=== PATIENT | female | born 1970 | race Caucasian/White ===

== ENCOUNTER 2021-12-24 07:24 | Day surgery (SDC) | payer OTHER, SELFPAY ==
[2021-12-22 10:16] VITALS: BMI 36.1
--- NOTE | 2021-12-23 14:08 | HO.ANESPROP2 ---
Documented by User: Alia Farrell NP 12/23/21 14:08 HPI - Anesthesia Eval Consult details Narrative: 51yo F for Colonoscopy PMFSH Surgical History Surgical History H/O tubal ligation History of ankle surgery History of hernia repair Previous section Social History Social History Patient Tobacco Use Status: Never used Tobacco Are you DNR?: No Advance Directives: No Advance Directives Information Provided: Yes Nutrition Risks: No Nutritional Risk Patient : No Meds Allergies Allergy/AdvReac Type Severity Reaction Status Date / Time amoxicillin Allergy Unknown Verified 09/07/18 00:00 Home Medications Medication Instructions Recorded Confirmed Last Taken Type beclomethasone dipropionate 80 1 puff inhalation BID 12/23/21 12/23/21 12/24/21 History mcg/actuation HFA breath activated aerosol (Qvar RediHaler) fluoxetine 20 mg capsule 1 cap PO DAILY 12/23/21 12/23/21 12/23/21 History albuterol sulfate 2.5 mg/3 mL 1 vial inhalation Q4H PRN wheezing 12/24/21 12/24/21 12/24/21 History (0.083 %) solution for nebulization Exam Exam Date and Time: December 23, 2021 1408 Height,Weight and Vital Signs: Height 5 ft 3 in Weight 92.533 kg Assessment and Plan Assessment Anesthesia Assessment: Chart Reviewed Documented by User: Irma Victoria MD 12/24/21 07:57 PMFSH Active Problems Active Problems: obesity Past Medical History Functional capacity: independent ambulation Patient : No Family History Family history of problems with anesthesia: No Surgical History Surgical History H/O tubal ligation History of ankle surgery History of hernia repair Previous section History of Problems with Anesthesia: No Social History Social History Patient Tobacco Use Status: Never used Tobacco Are you DNR?: No Advance Directives: No Advance Directives Information Provided: Yes Nutrition Risks: No Nutritional Risk Patient : No Travel History History of recent travel: No Recent Travel in [place] Within the Last 8 Weeks: No Meds Allergies Allergy/AdvReac Type Severity Reaction Status Date / Time amoxicillin Allergy Unknown Verified 09/07/18 00:00 Home Medications Medication Instructions Recorded Confirmed Last Taken Type beclomethasone dipropionate 80 1 puff inhalation BID 12/23/21 12/23/21 12/24/21 History mcg/actuation HFA breath activated aerosol (Qvar RediHaler) fluoxetine 20 mg capsule 1 cap PO DAILY 12/23/21 12/23/21 12/23/21 History albuterol sulfate 2.5 mg/3 mL 1 vial inhalation Q4H PRN wheezing 12/24/21 12/24/21 12/24/21 History (0.083 %) solution for nebulization Exam Airway Mallampati Class: II TM Dist: >3cm Neck ROM: Full Heart: RRR Lungs: CTA Assessment and Plan Final Anesthetic Review Family History of Problems with Anesthesia: No History of Problems with Anesthesia: No NPO: Yes ASA Class: II Final Preanesthetic Review: No Changes in Pt Med Stat, Meds/Allgs Chart Reviewed, Consent Obtained/Reviewed and Anes Risks/Benef Reviewed Patient Risk: Low Procedure Risk: Low Anesthetic Plan Anesthetic Plan: MAC: Disposition: Standard PACU
[2021-12-24 07:41] VITALS: BP 163/98; PULSE 92; RESP 16; TEMP 36.1; O2SAT 98
[2021-12-24 07:50] LABS: COVID-19 Test Negative (Negative)
[2021-12-24] MEDS: Lactated Ringers 1,000 ML 100 ML IVCONT (07:54)
--- NOTE | 2021-12-24 09:51 | PM.OP ---
Brief Operative Note Date of Service: 12/24/21 Pre-op diagnosis: Screening Post-op diagnosis: other (Colon polyps) Procedure: Colonoscopy to the cecum with hot snare polypectomy x 2, with clipping x3 and ink marking for the polyp at 60cm Surgeon: True Santos Anesthesia: MAC Was an Cloud Infrastructure Architect used for this Procedure?: No Estimated blood loss (mL): 3.0 Pathology: other (A. Polyp at 60cm) Condition: stable Disposition: PACU
[2021-12-24 09:55] VITALS: BP 154/85; PULSE 92; RESP 16; TEMP 36.7; O2SAT 98
[2021-12-24 10:10] VITALS: BP 159/83; PULSE 81; RESP 18; TEMP 36.7; O2SAT 96
--- NOTE | 2021-12-24 10:26 | HO.POSTANES ---
Post Anesthesia Evaluation Post Anesthesia Evaluation Vital Signs: Vital Signs Temp Pulse Resp BP Pulse Ox O2 Del Method 12/24/21 10:10 98.0 F 81 18 159/83 H 96 Room Air 12/24/21 09:55 98.0 F 92 16 154/85 H 98 Room Air 12/24/21 07:41 97 F 92 16 163/98 H 98 Room Air Anesthesia: Monitored Mental Status: Awake Pain Control: Satisfactory Nausea/Vomiting: None Hydration: Adequate Anesthesia-Related Issues: No Anes. Related Issues
== END 2021-12-24 10:31 | disposition home or self-care (01) ==
PROVIDERS: Nurse Practitioner; Visit Provider Internal Medicine
PROC: 0DJD8ZZ Inspection of Lower Intestinal Tract, Via Natural or Artificial Opening Endoscopic (ICD-10-PCS; CPT 45378; principal; 2021-12-24 08:30)
DX: Z12.11 Encounter for screening for malignant neoplasm of colon (principal); Z80.0 Family history of malignant neoplasm of digestive organs; D12.4 Benign neoplasm of descending colon; K57.30 Diverticulosis of large intestine without perforation or abscess without bleeding; K64.8 Other hemorrhoids; Z79.51 Long term (current) use of inhaled steroids; J45.909 Unspecified asthma, uncomplicated; Z88.1 Allergy status to other antibiotic agents; Z20.822 Contact with and (suspected) exposure to COVID-19
CPT/HCPCS: 45385; 45381; 87635; 88305

== ENCOUNTER 2022-08-05 10:46 | Day surgery (SDC) | payer OTHER, SELFPAY ==
--- NOTE | 2022-08-04 14:33 | P.CONAN_ITS ---
Documented by User: Alia Farrell NP 08/04/22 14:34 HPI - Anesthesia Eval Consult details Narrative: 52yo F for Colonoscopy s/p colo 12/2021 with [facility] Past Medical History Medical History (Updated 08/04/22 @ 13:15 by Andie Pena, RICHARD) Asthma HTN (hypertension) Family History Family history of problems with anesthesia: No Surgical History Surgical History (Updated 08/04/22 @ 13:15 by Andie Pena, RN) H/O colonoscopy H/O tubal ligation History of ankle surgery History of hernia repair Previous section History of Problems with Anesthesia: No Social History Social History Patient Tobacco Use Status: Never used Tobacco Use of substances other than those prescribed or required for medical reasons: No Are you DNR?: No Advance Directives: No Advance Directives Information Provided: Yes Meds Allergies Allergy/AdvReac Type Severity Reaction Status Date / Time amoxicillin Allergy Unknown Verified 09/07/18 00:00 Home Medications Medication Instructions Recorded Confirmed Last Taken Type albuterol sulfate 2.5 mg/3 mL 1 inhalation Q4H PRN wheezing 08/04/22 08/04/22 Unknown History (0.083 %) solution for nebulization beclomethasone dipropionate 80 1 inh inhalation BID 08/04/22 08/04/22 08/05/22 History mcg/actuation HFA breath activated aerosol (Qvar RediHaler) fluoxetine 40 mg capsule 40 mg PO DAILY 08/04/22 08/04/22 Unknown History losartan 100 mg tablet 100 mg PO DAILY 08/04/22 08/04/22 08/05/22 History Exam Exam Date and Time: August 04, 2022 1433 Assessment and Plan Assessment Anesthesia Assessment: Chart Reviewed Final Anesthetic Review Family History of Problems with Anesthesia: No History of Problems with Anesthesia: No Documented by User: Maria Eugenia Bautista MD 08/05/22 13:28 PMF Past Medical History Medical History (Updated 08/04/22 @ 13:15 by Andie Pena RN) Asthma HTN (hypertension) Surgical History Surgical History (Updated 08/04/22 @ 13:15 by Andie Pena RN) H/O colonoscopy H/O tubal ligation History of ankle surgery History of hernia repair Previous section Social History Social History Patient Tobacco Use Status: Never used Tobacco Use of substances other than those prescribed or required for medical reasons: No Are you DNR?: No Advance Directives: No Advance Directives Information Provided: Yes Meds Allergies Allergy/AdvReac Type Severity Reaction Status Date / Time amoxicillin Allergy Unknown Verified 09/07/18 00:00 Home Medications Medication Instructions Recorded Confirmed Last Taken Type albuterol sulfate 2.5 mg/3 mL 1 inhalation Q4H PRN wheezing 08/04/22 08/04/22 Unknown History (0.083 %) solution for nebulization beclomethasone dipropionate 80 1 inh inhalation BID 08/04/22 08/04/22 08/05/22 History mcg/actuation HFA breath activated aerosol (Qvar RediHaler) fluoxetine 40 mg capsule 40 mg PO DAILY 08/04/22 08/04/22 Unknown History losartan 100 mg tablet 100 mg PO DAILY 08/04/22 08/04/22 08/05/22 History Exam Airway Mallampati Class: II (large neck small chin) TM Dist: >3cm Neck ROM: Full Loose/Missing/Broken Teeth: No Heart: rr Lungs: cta Assessment and Plan Assessment Anesthesia Assessment: Anesthesia Plan Discussed Final Anesthetic Review NPO: Yes ASA Class: II Final Preanesthetic Review: No Changes in Pt Med Stat, Meds/Allgs Chart Reviewed, Consent Obtained/Reviewed and Anes Risks/Benef Reviewed Patient Risk: Intermediate Procedure Risk: Low Anesthetic Plan Anesthetic Plan: MAC: Disposition: Standard PACU
[2022-08-05 11:05] VITALS: BMI 35.4
[2022-08-05 11:08] VITALS: BP 141/78; PULSE 81; RESP 18; TEMP 36.5; O2SAT 98
[2022-08-05] MEDS: Lactated Ringers 1,000 ML 100 ML IVCONT (11:34)
[2022-08-05 13:35] VITALS: BP 125/66; PULSE 87; RESP 16; TEMP 36.8; O2SAT 99
--- NOTE | 2022-08-05 13:37 | P.BOP_ITS ---
Brief Operative Note Date of Service: 08/05/22 Pre-op diagnosis: Screening, History of polyps Post-op diagnosis: other (Colon polyp) Procedure: Colonoscopy to the cecum with hot snare polypectomy x 1 Surgeon: True Santos Anesthesia: MAC Was an Care Team Coordinator Scheduler used for this Procedure?: No Estimated blood loss (mL): 0 Pathology: other (A. Colon polyp at previous polypectomy site at 60cm) Condition: stable Disposition: PACU
[2022-08-05 13:50] VITALS: BP 121/76; PULSE 90; RESP 14; O2SAT 99
[2022-08-05 14:00] VITALS: BP 141/86; PULSE 80; RESP 12; TEMP 36.6; O2SAT 99
--- NOTE | 2022-08-05 14:43 | OP_ITS ---
DATE OF SERVICE: 08/05/2022 SURGEON: True Santos MD INDICATIONS: The patient presents for evaluation of previous history of a tubulovillous adenoma and family history of colon cancer. Full consent has been obtained from her for this, including risks of bleeding and perforation. PREOPERATIVE DIAGNOSIS: POSTOPERATIVE DIAGNOSIS: PROCEDURE PERFORMED: ESTIMATED BLOOD LOSS: COMPLICATIONS: ANESTHESIA: Monitored anesthesia care. ASSISTANTS: SPECIMENS: PROCEDURE: Colonoscopy to the cecum with hot snare polypectomy. PREOPERATIVE DIAGNOSES: Personal history of tubulovillous adenoma of the colon, family history of colon cancer, and colorectal cancer screening. POSTOPERATIVE DIAGNOSES: Personal history of tubulovillous adenoma of the colon, family history of colon cancer, colorectal cancer screening, colon polyp, diverticulosis and internal hemorrhoids. DESCRIPTION OF PROCEDURE: The patient was placed in the left lateral decubitus position. The digital rectal exam revealed some small external hemorrhoids. The [employer] video pediatric colonoscope was entered into the rectum and advanced easily to the cecum. Once in the cecum, I did identify normal-appearing cecal pouch with appendiceal orifice and a normal-appearing ileocecal valve. The entire cecum and ileocecal valve appeared normal. The scope was then slowly withdrawn assessing all mucosal surfaces carefully. Preparation was excellent. At the region of approximately 60 cm there was the site of her previous polypectomy judging by some scar and an ink marking just distal to it. On the edge of the polypectomy site there was some polypoid tissue measuring about 1 cm in size, which was removed by hot snare polypectomy and recovered by suction. The remainder of the area appeared to be free of any polyp tissue. The polypectomy site appeared clean, without any sign of residual polyp nor bleeding. I did not visualize any other polyps, colitis, or angiodysplasia. There was a mild amount of sigmoid diverticulosis. In the rectum, the scope was retroflexed visualizing internal hemorrhoids, but no other pathology. The rectal mucosa appeared normal. The scope was straightened and withdrawn from the patient. She tolerated the procedure well and was returned to the recovery area in stable condition. IMPRESSION: 1. Residual polyp tissue at polypectomy site removed by hot snare polypectomy. 2. Diverticulosis. 3. Internal hemorrhoids. PLAN: The results of the pathology will be checked. I would recommend a repeat colonoscopy within 1-2 years for further evaluation and screening. She was advised not to use any aspirin and NSAIDs for 1 week. She will otherwise see me on a p.r.n. basis. MD YAMEL Doe/JACOBY / [id number] MTDD
== END 2022-08-05 14:20 | disposition home or self-care (01) ==
PROVIDERS: PCP Physician Assistant; Visit Provider Internal Medicine
PROC: 0DJD8ZZ Inspection of Lower Intestinal Tract, Via Natural or Artificial Opening Endoscopic (ICD-10-PCS; CPT 45378; principal; 2022-08-05 12:10)
DX: Z12.11 Encounter for screening for malignant neoplasm of colon (principal); Z80.0 Family history of malignant neoplasm of digestive organs; Z86.010 Personal history of colon polyps; D12.4 Benign neoplasm of descending colon; K57.30 Diverticulosis of large intestine without perforation or abscess without bleeding; K64.8 Other hemorrhoids; I10 Essential (primary) hypertension; F41.1 Generalized anxiety disorder; J45.909 Unspecified asthma, uncomplicated; Z79.51 Long term (current) use of inhaled steroids; Z79.899 Other long term (current) drug therapy
CPT/HCPCS: 45385; 88305

== ENCOUNTER 2024-02-09 09:51 | Day surgery (SDC) | payer OTHER, SELFPAY ==
[2024-02-08 06:44] VITALS: BMI 36.3
--- NOTE | 2024-02-08 09:18 | P.CONAN_ITS ---
Documented by User: Alia Farrell NP 02/08/24 09:19 HPI - Anesthesia Eval Consult details Narrative: 53yo F for Colonoscopy [facility] Past Medical History Medical History (Updated 02/08/24 @ 06:38 by Radha Castaneda RN) Anxiety HTN (hypertension) Asthma Family History Family history of problems with anesthesia: No Surgical History Surgical History (Updated 08/04/22 @ 13:15 by Andie Pena RN) H/O colonoscopy H/O tubal ligation History of hernia repair History of ankle surgery Previous section History of Problems with Anesthesia: No Social History Social History Patient Tobacco Use Status: Never used Tobacco Advance Directives: No Advance Directives Information Provided: Yes Meds Allergies Allergy/AdvReac Type Severity Reaction Status Date / Time amoxicillin Allergy Unknown Verified 09/07/18 00:00 Home Medications ?Medication ?Instructions ?Recorded ?Confirmed ?Last Taken ?Type beclomethasone dipropionate 80 1 inh inhalation BID 08/04/22 02/08/24 08/05/22 History mcg/actuation HFA breath activated aerosol (Qvar RediHaler) losartan 100 mg tablet 100 mg PO DAILY 08/04/22 02/08/24 08/05/22 History albuterol sulfate 90 mcg/actuation 2 puff inhalation Q4H PRN wheezing 02/08/24 02/08/24 Unknown History aerosol inhaler fluoxetine 40 mg capsule 40 mg PO DAILY 02/08/24 02/08/24 Unknown History melatonin 1 mg tablet 1 mg PO BEDTIME PRN Insomnia 02/08/24 Unknown History multivitamin 1 tab PO DAILY 02/08/24 02/08/24 Unknown History Exam Height,Weight and Vital Signs: Height 5 ft 3 in Weight 92.986 kg Assessment and Plan Assessment Anesthesia Assessment: Chart Reviewed Final Anesthetic Review Family History of Problems with Anesthesia: No History of Problems with Anesthesia: No Documented by User: Arsen Victoria MD 02/09/24 10:26 [facility] Past Medical History Medical History (Updated 02/08/24 @ 06:38 by Radha Castaneda RN) Anxiety HTN (hypertension) Asthma Surgical History Surgical History (Updated 08/04/22 @ 13:15 by Andie Pena RN) H/O colonoscopy H/O tubal ligation History of hernia repair History of ankle surgery Previous section Social History Social History Patient Tobacco Use Status: Never used Tobacco Advance Directives: No Advance Directives Information Provided: Yes Meds Allergies Allergy/AdvReac Type Severity Reaction Status Date / Time amoxicillin Allergy Unknown Verified 09/07/18 00:00 Home Medications ?Medication ?Instructions ?Recorded ?Confirmed ?Last Taken ?Type beclomethasone dipropionate 80 1 inh inhalation BID 08/04/22 02/08/24 08/05/22 History mcg/actuation HFA breath activated aerosol (Qvar RediHaler) losartan 100 mg tablet 100 mg PO DAILY 08/04/22 02/08/24 08/05/22 History albuterol sulfate 90 mcg/actuation 2 puff inhalation Q4H PRN wheezing 02/08/24 02/08/24 Unknown History aerosol inhaler fluoxetine 40 mg capsule 40 mg PO DAILY 02/08/24 02/08/24 Unknown History melatonin 1 mg tablet 1 mg PO BEDTIME PRN Insomnia 02/08/24 Unknown History multivitamin 1 tab PO DAILY 02/08/24 02/08/24 Unknown History Exam Airway Mallampati Class: III TM Dist: >3cm Neck ROM: Full Assessment and Plan Assessment Anesthesia Assessment: Anesthesia Plan Discussed Final Anesthetic Review NPO: Yes ASA Class: II Final Preanesthetic Review: No Changes in Pt Med Stat, Meds/Allgs Chart Reviewed, Consent Obtained/Reviewed, Anes Risks/Benef Reviewed and DNR Form (If Appl.) Patient Risk: Low Procedure Risk: Low Anesthetic Plan Anesthetic Plan: TIVA Disposition: Standard PACU
[2024-02-09 10:23] VITALS: BMI 35.8
[2024-02-09 10:36] VITALS: BP 156/80; PULSE 97; RESP 16; TEMP 37; O2SAT 96
[2024-02-09] MEDS: Lactated Ringers 1,000 ML 100 ML IVCONT (10:50)
[2024-02-09 12:47] VITALS: BP 136/73; PULSE 73; RESP 16; TEMP 36.1; O2SAT 96
--- NOTE | 2024-02-09 12:51 | PM.OP ---
Brief Operative Note Date of Service: 02/09/24 Pre-op diagnosis: Screening Post-op diagnosis: other (Diverticulosis) Procedure: Colonoscopy to the cecum Surgeon: True Santos MD Anesthesia: MAC Was an Artistic Director used for this Procedure?: No Estimated blood loss (mL): 0 Pathology: none sent Condition: stable Disposition: PACU
[2024-02-09 13:02] VITALS: BP 162/91; PULSE 71; RESP 16; TEMP 36.3; O2SAT 99
--- NOTE | 2024-02-09 13:11 | OP_ITS ---
DATE OF SERVICE: 02/09/2024 SURGEON: True Santos MD INDICATIONS: The patient presents for followup of personal history of colon polyps, family history of colon cancer, and colorectal cancer screening. Full consent obtained from her for this, including risks of bleeding and perforation. PREOPERATIVE DIAGNOSIS: Personal history of colon polyps, family history of colon cancer, colorectal cancer screening. POSTOPERATIVE DIAGNOSIS: Personal history of colon polyps, family history of colon cancer, colorectal cancer screening, diverticulosis and internal hemorrhoids. PROCEDURE PERFORMED: Colonoscopy to the cecum. ESTIMATED BLOOD LOSS: COMPLICATIONS: ANESTHESIA: Monitored anesthesia care. ASSISTANTS: SPECIMENS: DESCRIPTION OF PROCEDURE: The patient was placed in the left lateral decubitus position. The digital rectal exam revealed no abnormalities. The Olympus video pediatric colonoscope was entered into the rectum and advanced to the cecum with the assistance of abdominal wall pressure. Once in the cecum, I did identify cecal pouch with appendiceal orifice and a normal-appearing ileocecal valve. The entire cecum and ileocecal valve appeared normal. The scope was slowly withdrawn assessing all mucosal surfaces carefully. Preparation was excellent. In the region of the descending colon between approximately 60 and 70 cm were submucosal ink moreno from previous exams. I did not visualize any sign of residual polyp tissue in this area. I did not visualize any polyps, colitis, nor angiodysplasias throughout the colon. There was a mild amount of sigmoid diverticulosis. In the rectum, scope was retroflexed visualizing internal hemorrhoids, but no other pathology. The rectal mucosa appeared normal. The scope was straightened and withdrawn from the patient. She tolerated the procedure well and was returned to the recovery area in stable condition. IMPRESSION: 1. Diverticulosis. 2. Internal hemorrhoids. PLAN: Given her previous history and family history, I would recommend a followup colonoscopy in the next 2 to 3 years. She will otherwise see me on a p.r.n. basis. True Santos MD RMSelam/JACOBY / [id number]
== END 2024-02-09 13:34 | disposition home or self-care (01) ==
PROVIDERS: Visit Provider Internal Medicine
PROC: 0DJD8ZZ Inspection of Lower Intestinal Tract, Via Natural or Artificial Opening Endoscopic (ICD-10-PCS; CPT 45378; principal; 2024-02-09 11:20)
DX: Z12.11 Encounter for screening for malignant neoplasm of colon (principal); Z80.0 Family history of malignant neoplasm of digestive organs; Z86.0101 Personal history of adenomatous and serrated colon polyps; K57.30 Diverticulosis of large intestine without perforation or abscess without bleeding; K64.8 Other hemorrhoids; J45.909 Unspecified asthma, uncomplicated; I10 Essential (primary) hypertension; F41.9 Anxiety disorder, unspecified; Z79.51 Long term (current) use of inhaled steroids; Z79.899 Other long term (current) drug therapy; Z98.890 Other specified postprocedural states
CPT/HCPCS: 45378; J2003; J2704